=== PATIENT | male | born 1990 | race Native Hawaiian/Other Pacific Islander ===

== ENCOUNTER 2020-09-18 17:59 | Emergency (ER) | payer OTHER ==
[~2020-09-18] VITALS: Ht 177.8 cm; Wt 90.7 kg
[~2020-09-18 17:59] MED LIST: AMOX500 PO; CRUTCH2 USE; CRUTCH4 USE; HYDACE5 PO; IBUP800 PO; NAPR550 PO
== END 2020-09-18 20:29 | disposition home or self-care (01) ==
LOC: ER 17:59 → EDBD 17:59 → ER 20:29
DX: S52.121A Displaced fracture of head of right radius, initial encounter for closed fracture (principal); Z88.5 Allergy status to narcotic agent; Z88.6 Allergy status to analgesic agent; Z79.899 Other long term (current) drug therapy; V00.131A Fall from skateboard, initial encounter; Y93.51 Activity, roller skating (inline) and skateboarding
CPT/HCPCS: 73080; 99283-25

== ENCOUNTER 2022-06-29 12:09 | Emergency (ER) | payer OTHER ==
[~2022-06-29] VITALS: Ht 177.8 cm; Wt 86.2 kg
[2022-06-29] MEDS ORDERED: SULTRIDS PO (15:08)
== END 2022-06-29 15:15 | disposition home or self-care (01) ==
LOC: ER 12:09
DX: S60.221A Contusion of right hand, initial encounter (principal); S60.222A Contusion of left hand, initial encounter; F17.210 Nicotine dependence, cigarettes, uncomplicated; W20.8XXA Other cause of strike by thrown, projected or falling object, initial encounter
CPT/HCPCS: 73130

== ENCOUNTER 2022-10-03 00:18 | Emergency (ER) | payer OTHER ==
[~2022-10-03] VITALS: Ht 177.8 cm; Wt 83.9 kg
[~2022-10-03 00:18] MED LIST changes: +SULTRIDS PO
[2022-10-03] MEDS ORDERED: Percocet 5-3251 EACH PO (01:48)
== END 2022-10-03 02:20 | disposition home or self-care (01) ==
LOC: ER 00:18
DX: S62.111A Displaced fracture of triquetrum [cuneiform] bone, right wrist, initial encounter for closed fracture (principal); W01.0XXA Fall on same level from slipping, tripping and stumbling without subsequent striking against object, initial encounter; F17.210 Nicotine dependence, cigarettes, uncomplicated; Z91.010 Allergy to peanuts; Z91.018 Allergy to other foods; Z79.899 Other long term (current) drug therapy
CPT/HCPCS: 73110; A9270

== ENCOUNTER 2023-02-26 08:20 | Emergency (ER) | payer OTHER ==
[~2023-02-26] VITALS: Ht 177.8 cm; Wt 81.7 kg
[~2023-02-26 08:20] MED LIST changes: +Percocet 5-3251 EACH PO
[2023-02-26 09:45] VITALS: BP 123/78
== END 2023-02-26 09:54 | disposition home or self-care (01) ==
LOC: ER 08:20
DX: S93.402A Sprain of unspecified ligament of left ankle, initial encounter (principal); F17.210 Nicotine dependence, cigarettes, uncomplicated; Z91.010 Allergy to peanuts; Z91.018 Allergy to other foods; V00.131A Fall from skateboard, initial encounter; Y93.51 Activity, roller skating (inline) and skateboarding
CPT/HCPCS: 73610; 99283-25

== ENCOUNTER 2023-03-24 14:35 | Emergency (ER) | payer OTHER ==
[~2023-03-24] VITALS: Ht 177.8 cm; Wt 81.7 kg
[2023-03-24 14:52] VITALS: BP 149/87
[2023-03-24] MEDS ORDERED: AMOCLA875 PO (16:38)
== END 2023-03-24 16:45 | disposition home or self-care (01) ==
LOC: ER 14:35
DX: S02.5XXA Fracture of tooth (traumatic), initial encounter for closed fracture (principal); S62.111A Displaced fracture of triquetrum [cuneiform] bone, right wrist, initial encounter for closed fracture; S60.416A Abrasion of right little finger, initial encounter; F17.210 Nicotine dependence, cigarettes, uncomplicated; Z91.030 Bee allergy status; V00.131A Fall from skateboard, initial encounter; Y93.51 Activity, roller skating (inline) and skateboarding
CPT/HCPCS: 29125; 73130; 96372-59; 99283-25; A9270; J1885

== ENCOUNTER 2023-12-01 10:13 | Emergency (ER) | payer OTHER ==
[~2023-12-01] VITALS: Ht 180.3 cm; Wt 83.9 kg
[~2023-12-01 10:13] MED LIST changes: +AMOCLA875 PO
[2023-12-01 10:31] VITALS: BP 128/82
== END 2023-12-01 13:20 | disposition home or self-care (01) ==
LOC: ER 10:13
DX: S83.91XA Sprain of unspecified site of right knee, initial encounter (principal); V00.131A Fall from skateboard, initial encounter; Z91.030 Bee allergy status; F17.210 Nicotine dependence, cigarettes, uncomplicated
CPT/HCPCS: 73562-RT; 99283-25

== ENCOUNTER 2024-10-15 21:54 | Emergency (ER) | payer OTHER ==
[~2024-10-15] VITALS: Ht 177.8 cm; Wt 90.7 kg
[2024-10-15 21:57] VITALS: BP 144/87
[2024-10-15 22:18] LABS: BASOPHILS ABSOLUTE AUTO 0.03 K/mm3 (0.00-0.23); BASOPHILS PERCENT AUTO 0 % (0-2); EOSINOPHILS ABSOLUTE AUTO 0.04 K/mm3 (0.00-0.68); EOSINOPHILS PERCENT AUTO 0 % (0-6); Hematocrit 47.3 % (37.0-53.0); Hemoglobin 16.7 g/dL (13.5-17.5); IMMATURE GRAN ABSOLUTE AUTO 0.07 K/mm3 (0.00-0.10); IMMATURE GRAN PERCENT AUTO 1 % (0-1); LYMPHOCYTES ABSOLUTE AUTO 0.88 K/mm3 (0.84-5.20); LYMPHOCYTES PERCENT AUTO 9 % (21-46); MONOCYTES PERCENT AUTO 11 % (4-13); Mean Corpuscular HGB 29.3 pg (26.0-34.0); Mean Corpuscular HGB Conc 35.3 g/dL (31.5-36.5); Mean Corpuscular Volume 83 fL (80-100); Mean Platelet Volume 9.2 fL (9.1-12.4); NEUTROPHILS ABSOLUTE AUTO 7.86 K/mm3 (1.96-9.15); NEUTROPHILS PERCENT AUTO 79 % (41-73); Platelet Count 240 K/mm3 (150-400); RDW Coefficient Variation 12.6 % (11.7-14.2); RDW Standard Deviation 38.2 fL (35.1-46.3); Red Blood Cell Count 5.69 M/mm3 (4.30-5.90); White Blood Cell Count 9.98 K/mm3 (4.00-11.30)
[2024-10-15 22:41] LABS: Albumin, Blood 3.5 g/dL (3.4-5.0); Albumin/Globulin Ratio 0.7 (0.8-1.8); Bilirubin, Total 1.3 mg/dL (0.1-1.0); Bun/Creatinine Ratio 13.6 (12.0-20.0); Calcium, Blood 8.6 mg/dL (8.5-10.1); Creatinine, Blood 0.88 mg/dL (0.60-1.20); Globulin, Blood 4.7 g/dL (2.2-4.0); Potassium, Blood 3.5 mmol/L (3.5-5.5); Total Protein, Blood 8.2 g/dL (6.4-8.2)
[2024-10-15] MEDS ORDERED: Ondansetron HCl 2 MG / ML 2ML Vial IV ONE (22:50)
[2024-10-15 23:21] LABS: CORONAVIRUS COVID-19 AG Negative (NEGATIVE); INFLUENZA A AG Negative (NEGATIVE); INFLUENZA B AG Negative (NEGATIVE)
[2024-10-15] MEDS ORDERED: ONDA4ODT MM (23:30)
[2024-10-17] MEDS ORDERED: AMOCLA875 PO (11:46)
[2024-10-17] MEDS ORDERED: Zithromax250 MG PO (11:46)
== END 2024-10-15 23:39 | disposition home or self-care (01) ==
LOC: ER 21:54
PROVIDERS: Student in an Organized Health Care Education/Training Program
DX: B34.9 Viral infection, unspecified (principal); F17.210 Nicotine dependence, cigarettes, uncomplicated; Z91.030 Bee allergy status; Z59.89 Other problems related to housing and economic circumstances
CPT/HCPCS: 71046; 80053; 83605; 85025; 87428-QW; 93005; 93010; 96374; 99284-25; J2405